=== PATIENT | male | born 1960 | race Caucasian/White ===

== ENCOUNTER 2016-06-10 03:36 | Emergency (ER) | payer MEDICAID ==
[2016-06-10] MEDS ORDERED: IPRATROPIUM/ALBUTEROL 3 ML NEB INH STA (04:47)
[2016-06-10] MEDS ORDERED: DEXAMETHASONE 10 MG/ML VIAL PO STA (04:47)
[2016-06-10] MEDS ORDERED: DEXAMETHASONE 10 MG/ML VIAL ONE (04:59)
[2016-06-10] MEDS ORDERED: IPRATROPIUM/ALBUTEROL 3 ML NEB INH ONE (05:01)
[2016-06-10] MEDS ORDERED: BENZONATATE 100 MG CAPSULE PO STA (05:36)
[2016-06-10] MEDS ORDERED: CEPHALEXIN 250 MG CAPSULE PO STA (05:36)
[2016-06-10] MEDS ORDERED: BENZONATATE 100 MG CAPSULE PO ONE (05:54)
[2016-06-10] MEDS ORDERED: CEPHALEXIN 250 MG CAPSULE PO ONE (05:54)
== END 2016-06-10 06:01 | disposition home or self-care (01) ==
DX: J18.0 Bronchopneumonia, unspecified organism (principal); I10 Essential (primary) hypertension; F17.200 Nicotine dependence, unspecified, uncomplicated
CPT/HCPCS: 36415; 71020; 80053; 83690; 83880; 85025; 94640; 99283; 99284; A9270; J7620

== ENCOUNTER 2016-07-23 12:41 | Outpatient (CLI) | payer MEDICAID | END 2016-07-23 12:42 | disposition home or self-care (01) | DX: J84.9 Interstitial pulmonary disease, unspecified (principal); R91.8 Other nonspecific abnormal finding of lung field ==

== ENCOUNTER 2016-08-25 13:46 | Outpatient (CLI) | payer MEDICAID | END 2016-08-25 13:47 | disposition home or self-care (01) | DX: R06.00 Dyspnea, unspecified (principal); R01.1 Cardiac murmur, unspecified; R07.9 Chest pain, unspecified; F17.200 Nicotine dependence, unspecified, uncomplicated ==

== ENCOUNTER 2017-02-06 10:00 | Outpatient (CLI) | payer MEDICAID | END 2017-02-06 10:01 | disposition home or self-care (01) | LOC: RT.S 10:00 | PROVIDERS: ATTEND Nurse Practitioner Family | DX: R06.02 Shortness of breath (principal); R07.89 Other chest pain | CPT/HCPCS: 93005 ==

== ENCOUNTER 2017-02-08 00:29 | Emergency (ER) | payer MEDICAID ==
--- NOTE | 2017-02-08 02:35 | ED Physician Documentation ---
PD HPI ABD PAIN - Stated complaint Stated Complaint: ABDOMINAL PAIN - Chief complaint Chief Complaint: Wound - History obtained from History obtained from: Patient - History of Present Illness Timing - onset: How many weeks ago (2) Timing - duration: Weeks Timing - details: Gradual onset Quality: Pain Location: Periumbilical Improved by: Laying still Worsened by: Palpation Associated symptoms: No: Fever Recently seen: Clinic - Additional information Additional information: patient complains of two weeks of painful swelling, redness, adjacent to umbilicus. He was evaluated by his primary care physician recently, and was started on Keflex, and scheduled for an ultrasound for tomorrow. He presents at this time due to sudden, large amount of purulent discharge. Review of Systems Constitutional: reports: Reviewed and negative GI: denies: Abdominal Pain (abdominal wall pain, but no abdominal pain per se), Vomiting Skin: reports: Rash, Lesions PD PAST MEDICAL HISTORY - Past Medical History Cardiovascular: Hypertension, Murmur Respiratory: None, COPD Neuro: None Endocrine/Autoimmune: None GI: None : None HEENT: None Psych: None Musculoskeletal: Osteoarthritis Derm: Other - Past Surgical History Past Surgical History: Yes HEENT: Tonsil/Adenoidectomy - Present Medications Home Medications: Ambulatory Orders Medication Instructions Recorded Confirmed Naproxen [Aleve] 250 mg PO DAILY 06/28/13 06/28/13 Aspirin [Elias] 325 mg PO 0800 08/31/13 08/31/13 Doxepin [SINEquan] 25 mg PO QPM #30 capsule 08/31/13 Methylprednisolone [Medrol] 4 mg PO DAILY #1 tab.ds.pk 08/31/13 Albuterol Sulfate [Proair Hfa 2 puffs IH QID #1 hfa.aer.ad 06/10/16 Inhaler] Cephalexin [Keflex] 500 mg PO TID #21 capsule 06/10/16 Dexamethasone [Decadron] 4 mg PO DAILY #5 tablet 06/10/16 guaiFENesin/CODEINE [Robitussin AC] 10 ml PO Q6H PRN #240 ml 06/10/16 Sulfamethoxazole/Trimethoprim 1 each PO BID #19 tablet 02/08/17 [Bactrim 400-80 mg Tablet] - Allergies Allergies/Adverse Reactions: Allergies Allergy/AdvReac Type Severity Reaction Status Date / Time diphenhydramine HCl * Allergy joint pain Verified 06/10/16 03:45 [From Benadryl] - Social History Does the pt smoke?: Yes Smoking Status: Current every day smoker Does the pt drink ETOH?: No Does the pt have substance abuse?: No - Immunizations Immunizations are current?: No Immunizations: No immun - POLST Patient has POLST: No PD ED PE NORMAL - Vitals Vital signs reviewed: Yes - General General: No acute distress, Well developed/nourished - Abdomen Abdomen: Soft, Non distended, Other (abdominal wall tenderness at site of lesion ) PD ED PE EXPANDED - Derm SKin visual: 1 - rash, abscess, swelling, tenderness Results - Vitals Vitals: Oxygen O2 Source Room air - Labs Labs: Microbiology 02/07/17 00:39 Wound Culture - Preliminary Abscess PD MEDICAL DECISION MAKING - ED course Complexity details: considered differential, d/w patient ED course: with pressure, an extensive amount of purulent drainage was expressed from the periumbilical skin abscess. The site of drainage was noted to be the superior or cranial aspects of the umbilicus Departure - Departure Disposition: 01 Home, Self Care Clinical Impression: Abscess Condition: Good Instructions: ED Staph Infec Abx Tx Only Follow-Up: Leena Prasad ARNP [Primary Care Provider] - (2-3 days for recheck of the infection) Prescriptions: Sulfamethoxazole/Trimethoprim [Bactrim 400-80 mg Tablet] 1 each PO BID #19 tablet Comments: Continue your current antibiotic (cephalexin), and start taking the bactrim ( sulfamethoxazole/trimethoprim) Discharge Date/Time: 02/08/17 03:35
[2017-02-08] MEDS ORDERED: SULFAMETH/TRIMETH DS 800/160 MG TABLET PO STA (03:04)
[2017-02-08] MEDS ORDERED: SULFAMETH/TRIMETH DS 800/160 MG TABLET PO ONE (03:14)
[2017-02-08 03:16] VITALS: BP 161/89
== END 2017-02-08 03:35 | disposition home or self-care (01) ==
LOC: ED 00:29
DX: L02.211 Cutaneous abscess of abdominal wall (principal); L03.311 Cellulitis of abdominal wall; I10 Essential (primary) hypertension; J44.9 Chronic obstructive pulmonary disease, unspecified; M19.90 Unspecified osteoarthritis, unspecified site; Z79.82 Long term (current) use of aspirin; F17.200 Nicotine dependence, unspecified, uncomplicated
CPT/HCPCS: 76705; 87070; 87205; 99283; A9270

== ENCOUNTER 2017-02-08 18:42 | Outpatient (CLI) | payer MEDICAID ==
--- NOTE | 2017-02-09 09:43 | Ultrasound Report ---
ULTRASOUND ANTERIOR ABDOMINAL WALL: 02/08/2017 CLINICAL INDICATION: Cellulitis. TECHNIQUE: Real-time scanning was performed with [employer] sales representative static images obtained. FINDINGS: According to the patient, this region was drained in the emergency department earlier the same day. Ultrasound of the region of redness demonstrates a heterogeneous fluid collection, measuring 3.9 x 3. 4 x 2.1 cm, compatible with residual abscess. There is no evidence of an umbilical hernia at this ti me. IMPRESSION: RESIDUAL ABSCESS, MEASURING 3.9 X 3.4 X 2.1 CM IN THE REGION OF REDNESS JUST SUPERIOR TO THE UMBILICUS. JOB #: [id number] EXT JOB #:[id number]
== END 2017-02-08 18:43 | disposition home or self-care (01) ==
LOC: DI 18:42
PROVIDERS: ATTEND Nurse Practitioner Family
DX: L03.311 Cellulitis of abdominal wall (principal)
CPT/HCPCS: 76705

== ENCOUNTER 2018-03-26 11:15 | Outpatient (CLI) | payer MEDICAID | END 2018-03-26 11:16 | disposition home or self-care (01) | LOC: LAB.R 11:15 | PROVIDERS: ATTEND Orthopaedic Surgery | DX: L03.115 Cellulitis of right lower limb (principal); L03.119 Cellulitis of unspecified part of limb; L02.31 Cutaneous abscess of buttock | CPT/HCPCS: 87070; 87205 ==

== ENCOUNTER 2018-03-26 11:17 | Outpatient (CLI) | payer MEDICAID ==
[2018-03-26 11:31] LABS: BASOPHILS # (AUTO) 0.1 10^3/uL (0.0-0.1); EOSINOPHILS # (AUTO) 0.2 10^3/uL (0.0-0.7); EOSINOPHILS % (AUTO) 1.9 %; HGB - HEMOGLOBIN 16.8 g/dL (14.0-18.0); LYMPHOCYTES # (AUTO) 2.5 10^3/uL (1.5-3.5); MEAN CORPUSCULAR HEMOGLOBIN 33.2 pg (27.0-31.0); MEAN CORPUSCULAR HGB CONC 34.6 g/dL (32.0-36.0); MEAN CORPUSCULAR VOLUME 95.8 fL (80.0-94.0); MEAN PLATELET VOLUME 8.8 fL (7.4-11.4); MONOCYTES % (AUTO) 8.4 %; NEUTROPHILS % (AUTO) 67.7 %; PLT - PLATELET COUNT 247 10^3/uL (130-450); RED BLOOD COUNT 5.06 10^6/uL (4.70-6.10); RED CELL DISTRIBUTION WIDTH 13.2 % (12.0-15.0); WHITE BLOOD COUNT 11.8 x10^3/uL (4.8-10.8)
== END 2018-03-26 11:18 | disposition home or self-care (01) ==
LOC: LAB 11:17
PROVIDERS: ATTEND Orthopaedic Surgery
DX: L03.115 Cellulitis of right lower limb (principal); L03.319 Cellulitis of trunk, unspecified; L02.31 Cutaneous abscess of buttock
CPT/HCPCS: 36415; 85025; 85651; 86140; 87070; 87205

== ENCOUNTER 2018-04-17 13:18 | Outpatient (CLI) | payer MEDICAID ==
[2018-04-17] MEDS ORDERED: GADOBUTROL 10 MMOL/10 ML VIAL ONE (15:23)
[2018-04-17] MEDS ORDERED: GADOBUTROL 10 MMOL/10 ML VIAL IVP ONE (16:30)
[2018-04-17] MEDS ORDERED: ALBUTEROL NEB 2.5 MG/3 ML INH PRN (19:04)
--- NOTE | 2018-04-18 15:41 | MRI Report ---
Reason: ABSCESS,ARTHRITIS OF RIGHT HIP Procedure Date: 04/17/2018 Accession Number: [id number] / [id number] Procedure: MRI - Hip RT W/WO CPT Code: FULL RESULT: EXAM: RIGHT HIP MRI WITHOUT AND WITH CONTRAST EXAM DATE: 04/17/2018 04:28 PM. CLINICAL HISTORY: Abscess, arthritis of right hip. COMPARISON: None. TECHNIQUE: Multiplanar, multisequence T1-weighted and fluid-sensitive, small mklbn-jc-xpae sequences of the hip and large awgca-dr-gaau sequences of the pelvis before and after administration of intravenous contrast. IV contrast: 10 cc Gadavist. Other: None. FINDINGS: Bones: Multiple subcortical cysts, marginal osteophytes, cortical irregularity and sclerosis, subchondral marrow edema at the right acetabulum and right femoral head. Peripheral enhancement of the subcortical cysts. No acute fracture or bone lesions. No definite evidence of osteomyelitis. Right Hip: No acetabular retroversion. Femoral head/neck offset is within normal limits. Small right hip joint effusion. There is a 1.1 x 1.1 x 0.6 cm ossified loose body at the inferior medial aspect of the right hip joint. Severe grade 4 chondromalacia at the right acetabulum and right femoral head. The labrum is degenerated. The ligamentum teres is intact. Other Joints: Degenerative disk changes at the visualized lower lumbar spine. Mild to moderate left and mild right sacroiliac joint osteoarthritis. The pubic symphysis is unremarkable. Mild to moderate left hip osteoarthritis. Marginal osteophytes and subcortical cysts at the left femoral head. Musculature: Mild edema within the superomedial aspect of the right gluteus medius muscle and the anterior aspect of the right gluteus minimus muscle. The gluteus medius and minimus tendons are normal. The visualized hamstring tendons are normal. The ischiofemoral space is normal. Pelvic Cavity: The visualized viscera are unremarkable. No lymphadenopathy. No free fluid in the pelvis. Other: The visualized sciatic nerves are unremarkable. No bursitis. The subcutaneous tissues are unremarkable. No abscess or cellulitis. IMPRESSION: 1. Severe right hip osteoarthritis. No definite MR evidence of osteomyelitis. 2. Small right hip joint effusion. Loose body within the inferior medial aspect of the right hip joint. Degenerated right acetabular labrum. 3. Degenerative disk changes at the visualized lower lumbar spine. 4. Mild to moderate left hip osteoarthritis. 5. Mild to moderate left and mild right sacroiliac joint osteoarthritis. 6. Mild amount of edema within the superomedial aspect of the right gluteus medius muscle and anterior aspect of the right gluteus minimus muscle which may represent strain or inflammation. [facility] MUSCULOSKELETAL RADIOLOGY SECTION
== END 2018-04-17 13:19 | disposition home or self-care (01) ==
LOC: RT 13:18
PROVIDERS: ATTEND Internal Medicine
DX: J44.9 Chronic obstructive pulmonary disease, unspecified (principal); M16.11 Unilateral primary osteoarthritis, right hip; L02.91 Cutaneous abscess, unspecified
CPT/HCPCS: 73723; 94060; 94729; A9585

== ENCOUNTER 2018-10-10 10:02 | Outpatient (CLI) | payer MEDICAID ==
[2018-10-10 17:49] LABS: BASOPHILS # (AUTO) 0.1 10^3/uL (0.0-0.1); EOSINOPHILS % (AUTO) 0.3 %; HGB - HEMOGLOBIN 16.8 g/dL (14.0-18.0); LYMPHOCYTES % (AUTO) 9.8 %; MEAN CORPUSCULAR HEMOGLOBIN 32.3 pg (27.0-31.0); MEAN CORPUSCULAR HGB CONC 33.3 g/dL (32.0-36.0); MEAN CORPUSCULAR VOLUME 97.1 fL (80.0-94.0); MEAN PLATELET VOLUME 9.8 fL (7.4-11.4); MONOCYTES # (AUTO) 0.2 10^3/uL (0.0-1.0); MONOCYTES % (AUTO) 2.2 %; NEUTROPHILS # (AUTO) 8.8 10^3/uL (1.5-6.6); NEUTROPHILS % (AUTO) 86.7 %; PLT - PLATELET COUNT 226 10^3/uL (130-450); RED CELL DISTRIBUTION WIDTH 13.5 % (12.0-15.0); WHITE BLOOD COUNT 10.1 x10^3/uL (4.8-10.8)
[2018-10-10 18:15] LABS: HB2 TOTAL 18.8 g/dL; HEMOGLOBIN A1C 0.7 g/dL; HEMOGLOBIN A1C % 5.6 % (4.6-6.2)
[2018-10-10 18:24] LABS: ALBUMIN 4.4 g/dL (3.2-5.5); ALBUMIN/GLOBULIN RATIO 1.6 (1.0-2.2); ALKALINE PHOSPHATASE 106 IU/L (42-121); ALT ALANINE AMINOTRANSFERASE 20 IU/L (10-60); AST ASPARTATE AMINOTRANSFERASE 19 IU/L (10-42); BILIRUBIN,TOTAL 0.8 mg/dL (0.2-1.0); BUN - BLOOD UREA NITROGEN 25 mg/dL (6-20); CALCIUM 9.5 mg/dL (8.5-10.3); CARBON DIOXIDE - CO2 27 mmol/L (21-32); CHLORIDE 104 mmol/L (101-111); CHOL/HDL RATIO 5.6 (<5.0); CHOLESTEROL 229 mg/dL; GFR - MDRD 76 (>89); GLUCOSE 122 mg/dL (70-100); HDL CHOLESTEROL 41 mg/dL; LDL CHOLESTEROL,CALCULATED 172 mg/dL; LDL/HDL RATIO 4.2 (<3.6); SODIUM 138 mmol/L (135-145); TOTAL PROTEIN 7.2 g/dL (6.7-8.2); VLDL CHOLESTEROL 16 mg/dL
== END 2018-10-10 10:03 | disposition home or self-care (01) ==
LOC: LAB.F 10:02
PROVIDERS: ATTEND Nurse Practitioner Family
DX: I10 Essential (primary) hypertension (principal); Z13.220 Encounter for screening for lipoid disorders; Z13.1 Encounter for screening for diabetes mellitus; N40.1 Benign prostatic hyperplasia with lower urinary tract symptoms; Z12.11 Encounter for screening for malignant neoplasm of colon
CPT/HCPCS: 36415; 80053; 80061; 82274; 83036; 83721; 84153; 84443; 85025

== ENCOUNTER 2018-10-12 13:46 | Outpatient (CLI) | payer MEDICAID ==
[2018-10-12 17:49] LABS: ALBUMIN 4.3 g/dL (3.2-5.5); ALBUMIN/GLOBULIN RATIO 1.4 (1.0-2.2); BILIRUBIN,TOTAL 0.9 mg/dL (0.2-1.0); CALCIUM 9.7 mg/dL (8.5-10.3); CREATININE 1.1 mg/dL (0.6-1.2); TOTAL PROTEIN 7.3 g/dL (6.7-8.2)
== END 2018-10-12 13:47 | disposition home or self-care (01) ==
LOC: LAB.F 13:46
PROVIDERS: ATTEND Physician Assistant Medical
DX: I10 Essential (primary) hypertension (principal); D75.89 Other specified diseases of blood and blood-forming organs
CPT/HCPCS: 36415; 80053; 82607; 82746; 82747

== ENCOUNTER 2018-10-16 08:00 | Outpatient (CLI) | payer MEDICAID | END 2018-10-16 23:59 | disposition home or self-care (01) | LOC: LAB.R 08:00 | PROVIDERS: ATTEND Nurse Practitioner | DX: Z12.11 Encounter for screening for malignant neoplasm of colon (principal) | CPT/HCPCS: 82270 ==

== ENCOUNTER 2019-07-18 09:09 | Outpatient (CLI) | payer MEDICAID ==
[2019-07-18 17:58] LABS: ALBUMIN 4.3 g/dL (3.2-5.5); ALBUMIN/GLOBULIN RATIO 1.7 (1.0-2.2); ALKALINE PHOSPHATASE 76 IU/L (42-121); ALT ALANINE AMINOTRANSFERASE 20 IU/L (10-60); AST ASPARTATE AMINOTRANSFERASE 16 IU/L (10-42); BUN - BLOOD UREA NITROGEN 46 mg/dL (6-20); CALCIUM 9.3 mg/dL (8.5-10.3); CARBON DIOXIDE - CO2 28 mmol/L (21-32); CHLORIDE 101 mmol/L (101-111); CHOL/HDL RATIO 3.8 (<5.0); CHOLESTEROL 150 mg/dL; CREATININE 1.7 mg/dL (0.6-1.2); GFR - MDRD 41 (>89); GLUCOSE 125 mg/dL (70-100); HDL CHOLESTEROL 40 mg/dL; LDL CHOLESTEROL,CALCULATED 93 mg/dL; LDL/HDL RATIO 2.3 (<3.6); SODIUM 135 mmol/L (135-145); TOTAL PROTEIN 6.9 g/dL (6.7-8.2); VLDL CHOLESTEROL 17 mg/dL
== END 2019-07-18 09:10 | disposition home or self-care (01) ==
LOC: LAB.S 09:09
PROVIDERS: ATTEND Internal Medicine Cardiovascular Disease
DX: E78.5 Hyperlipidemia, unspecified (principal)
CPT/HCPCS: 36415; 80053; 80061; 83721

== ENCOUNTER 2019-10-01 10:35 | Outpatient (CLI) | payer MEDICAID ==
[2019-10-01 11:16] LABS: CALCIUM 9.5 mg/dL (8.5-10.3); CREATININE 1.3 mg/dL (0.6-1.2)
== END 2019-10-01 10:36 | disposition home or self-care (01) ==
LOC: LAB 10:35
PROVIDERS: ATTEND Nurse Practitioner
DX: I10 Essential (primary) hypertension (principal); I73.9 Peripheral vascular disease, unspecified; F17.200 Nicotine dependence, unspecified, uncomplicated; R06.02 Shortness of breath
CPT/HCPCS: 36415; 80048

== ENCOUNTER 2019-11-13 09:47 | Outpatient (CLI) | payer MEDICAID ==
[2019-11-13 10:56] LABS: BUN - BLOOD UREA NITROGEN 41 mg/dL (6-20); CARBON DIOXIDE - CO2 26 mmol/L (21-32); CHLORIDE 103 mmol/L (101-111); CHOL/HDL RATIO 3.1 (<5.0); CHOLESTEROL 130 mg/dL; CREATININE 1.2 mg/dL (0.6-1.2); GLUCOSE 109 mg/dL (70-100); HDL CHOLESTEROL 42 mg/dL; LDL CHOLESTEROL,CALCULATED 79 mg/dL; LDL/HDL RATIO 1.9 (<3.6); SODIUM 136 mmol/L (135-145); VLDL CHOLESTEROL 9 mg/dL
== END 2019-11-13 09:48 | disposition home or self-care (01) ==
LOC: LAB 09:47
PROVIDERS: ATTEND Nurse Practitioner
DX: I10 Essential (primary) hypertension (principal); E87.5 Hyperkalemia; E78.5 Hyperlipidemia, unspecified
CPT/HCPCS: 36415; 80048; 80061; 83721

== ENCOUNTER 2020-07-09 11:08 | Outpatient (CLI) | payer MEDICAID ==
[2020-07-09 14:49] LABS: BASOPHILS # (AUTO) 0.1 10^3/uL (0.0-0.1); BASOPHILS % (AUTO) 1.4 %; EOSINOPHILS # (AUTO) 0.2 10^3/uL (0.0-0.7); EOSINOPHILS % (AUTO) 3.1 %; HGB - HEMOGLOBIN 14.9 g/dL (14.0-18.0); LYMPHOCYTES % (AUTO) 25.3 %; MEAN CORPUSCULAR HEMOGLOBIN 33.7 pg (27.0-31.0); MEAN CORPUSCULAR VOLUME 105.2 fL (80.0-94.0); MEAN PLATELET VOLUME 10.7 fL (7.4-11.4); MONOCYTES # (AUTO) 0.8 10^3/uL (0.0-1.0); MONOCYTES % (AUTO) 9.7 %; NEUTROPHILS # (AUTO) 4.7 10^3/uL (1.5-6.6); NEUTROPHILS % (AUTO) 60.2 %; PLT - PLATELET COUNT 295 10^3/uL (130-450); RED BLOOD COUNT 4.42 10^6/uL (4.70-6.10); RED CELL DISTRIBUTION WIDTH 12.4 % (12.0-15.0); WHITE BLOOD COUNT 7.7 x10^3/uL (4.8-10.8)
[2020-07-09 15:16] LABS: ALBUMIN 4.2 g/dL (3.2-5.5); ALBUMIN/GLOBULIN RATIO 1.5 (1.0-2.2); ALKALINE PHOSPHATASE 67 IU/L (42-121); ALT ALANINE AMINOTRANSFERASE 30 IU/L (10-60); AST ASPARTATE AMINOTRANSFERASE 21 IU/L (10-42); BILIRUBIN,TOTAL 0.8 mg/dL (0.2-1.0); BUN - BLOOD UREA NITROGEN 36 mg/dL (6-20); CALCIUM 9.4 mg/dL (8.5-10.3); CARBON DIOXIDE - CO2 24 mmol/L (21-32); CHLORIDE 102 mmol/L (101-111); CHOL/HDL RATIO 2.5 (<5.0); CHOLESTEROL 108 mg/dL; CREATININE 1.4 mg/dL (0.6-1.2); GLUCOSE 111 mg/dL (70-100); HDL CHOLESTEROL 44 mg/dL; LDL CHOLESTEROL,CALCULATED 50 mg/dL; LDL/HDL RATIO 1.1 (<3.6); VLDL CHOLESTEROL 14 mg/dL
== END 2020-07-09 11:09 | disposition home or self-care (01) ==
LOC: LAB.S 11:08
PROVIDERS: ATTEND Registered Nurse
DX: I12.9 Hypertensive chronic kidney disease with stage 1 through stage 4 chronic kidney disease, or unspecified chronic kidney disease (principal); N18.30 Chronic kidney disease, stage 3 unspecified; R07.89 Other chest pain; R01.1 Cardiac murmur, unspecified; E87.5 Hyperkalemia; M25.551 Pain in right hip; M79.604 Pain in right leg; F31.9 Bipolar disorder, unspecified; J44.9 Chronic obstructive pulmonary disease, unspecified
CPT/HCPCS: 36415; 80053; 80061; 83721; 84153; 84443; 85025

== ENCOUNTER 2021-05-04 09:26 | Outpatient (CLI) | payer MEDICAID ==
[2021-05-04 12:49] LABS: FECAL OCCULT BLOOD (FIT) NEGATIVE (NEGATIVE)
== END 2021-05-04 09:27 | disposition home or self-care (01) ==
LOC: LAB 09:26
PROVIDERS: ATTEND Registered Nurse
DX: Z12.11 Encounter for screening for malignant neoplasm of colon (principal)
CPT/HCPCS: 82274

== ENCOUNTER 2021-05-06 09:41 | Outpatient (CLI) | payer MEDICAID ==
--- NOTE | 2021-05-06 09:57 | CT Report ---
PROCEDURE: CHEST WO INDICATIONS: PULMONARY NODULE TECHNIQUE: Noncontrast 1mm axial images were acquired from the pulmonary apices to the posterior costophrenic an gles. Axial 5 mm soft tissue kernel reconstructions were performed as well as 8 mm axial MIP and cor onal and sagittal 5 mm reformations. For radiation dose reduction, the following was used: automate d exposure control, adjustment of mA and/or kV according to patient size. COMPARISON: CT chest 07/23/2016. FINDINGS: Image quality: Excellent. Lungs and pleura: Several small pulmonary nodules which are unchanged compared to 2017. For example: -Right upper lobe 0.4 cm, (4/102), unchanged. -Right lower lobe subpleural 0.5 cm, (4/201), unchanged. -Left lower lobe 0.6 cm, (4/201), unchanged. -Left lower lobe subpleural 0.5 cm, (4/248), unchanged. Mild emphysematous change. No acute air space opacities. No pleural effusions or pneumothorax. Centr al airways are clear. Mediastinum: Left pacemaker with right atrial and right ventricular leads. Heart size is within norm al limits. Coronary artery calcifications. No pericardial effusion. No mediastinal adenopathy by si ze criteria. Thoracic aorta and central pulmonary arteries are normal in size. Esophagus is normal in caliber. Small hiatal hernia. Bones and chest wall: No suspicious bony lesions. No vertebral body compression fractures. No axil ravi or supraclavicular adenopathy by size criteria. The thyroid is normal in size and there are no incidental findings. Abdomen: Visualized upper abdominal solid organs and bowel loops appear normal in the absence of con trast. IMPRESSION: 1. Several small pulmonary nodules which are unchanged compared to 2017 suggesting a benign etiology. Largest in the left lower lobe measuring 0.6 cm. 2. Coronary artery calcifications. Reviewed by: Charles Crooks MD on 05/06/2021 9:56 AM [facility] Approved by: Charles Crooks MD on 05/06/2021 9:56 AM [facility] Station ID: [id number]
== END 2021-05-06 09:42 | disposition home or self-care (01) ==
LOC: DI 09:41
PROVIDERS: ATTEND Registered Nurse
DX: R91.8 Other nonspecific abnormal finding of lung field (principal); F17.200 Nicotine dependence, unspecified, uncomplicated; I25.10 Atherosclerotic heart disease of native coronary artery without angina pectoris

== ENCOUNTER 2021-07-30 10:49 | Outpatient (CLI) | payer MEDICAID ==
[2021-07-30] MEDS ORDERED: ALBUTEROL 1 PUFF INH STA (12:50)
== END 2021-07-30 10:50 | disposition home or self-care (01) ==
LOC: RT 10:49
PROVIDERS: ATTEND Internal Medicine Sleep Medicine
DX: R06.02 Shortness of breath (principal); F17.210 Nicotine dependence, cigarettes, uncomplicated; I10 Essential (primary) hypertension; N40.1 Benign prostatic hyperplasia with lower urinary tract symptoms; Z79.899 Other long term (current) drug therapy; Z12.5 Encounter for screening for malignant neoplasm of prostate; Z13.220 Encounter for screening for lipoid disorders
CPT/HCPCS: 36415; 80053; 80061; 83721; 84153; 84443; 85025; 94060; 94727; 94729

== ENCOUNTER 2021-07-30 13:54 | Outpatient (CLI) | payer MEDICAID ==
[2021-07-30 20:39] LABS: BASOPHILS # (AUTO) 0.1 10^3/uL (0.0-0.1); BASOPHILS % (AUTO) 0.9 %; EOSINOPHILS # (AUTO) 0.3 10^3/uL (0.0-0.7); EOSINOPHILS % (AUTO) 3.4 %; HCT - HEMATOCRIT 49.3 % (42.0-52.0); HGB - HEMOGLOBIN 16.4 g/dL (14.0-18.0); LYMPHOCYTES # (AUTO) 2.6 10^3/uL (1.5-3.5); MEAN CORPUSCULAR HEMOGLOBIN 34.1 pg (27.0-31.0); MEAN CORPUSCULAR HGB CONC 33.3 g/dL (32.0-36.0); MEAN CORPUSCULAR VOLUME 102.5 fL (80.0-94.0); MEAN PLATELET VOLUME 11.1 fL (7.4-11.4); MONOCYTES # (AUTO) 0.8 10^3/uL (0.0-1.0); MONOCYTES % (AUTO) 9.6 %; NEUTROPHILS # (AUTO) 4.7 10^3/uL (1.5-6.6); NEUTROPHILS % (AUTO) 54.9 %; PLT - PLATELET COUNT 249 10^3/uL (130-450); RED BLOOD COUNT 4.81 10^6/uL (4.70-6.10); RED CELL DISTRIBUTION WIDTH 12.5 % (12.0-15.0); WHITE BLOOD COUNT 8.5 x10^3/uL (4.8-10.8)
[2021-07-30 21:03] LABS: ALBUMIN 4.7 g/dL (3.2-5.5); ALKALINE PHOSPHATASE 72 IU/L (42-121); ALT ALANINE AMINOTRANSFERASE 21 IU/L (10-60); AST ASPARTATE AMINOTRANSFERASE 20 IU/L (10-42); BILIRUBIN,TOTAL 0.8 mg/dL (0.2-1.0); BUN - BLOOD UREA NITROGEN 34 mg/dL (6-20); CALCIUM 9.7 mg/dL (8.5-10.3); CARBON DIOXIDE - CO2 26 mmol/L (21-32); CHLORIDE 103 mmol/L (101-111); CHOL/HDL RATIO 2.7 (<5.0); CHOLESTEROL 136 mg/dL; CREATININE 1.4 mg/dL (0.6-1.2); GFR - MDRD 51 (>89); GLUCOSE 90 mg/dL (70-100); HDL CHOLESTEROL 51 mg/dL; LDL CHOLESTEROL,CALCULATED 67 mg/dL; LDL/HDL RATIO 1.3 (<3.6); POTASSIUM 4.8 mmol/L (3.5-5.0); SODIUM 137 mmol/L (135-145); TRIGLYCERIDES 92 mg/dL; VLDL CHOLESTEROL 18 mg/dL
== END 2021-07-30 13:55 | disposition home or self-care (01) ==
LOC: LAB.S 13:54
PROVIDERS: ATTEND Registered Nurse
DX: I10 Essential (primary) hypertension (principal); N40.1 Benign prostatic hyperplasia with lower urinary tract symptoms; Z79.899 Other long term (current) drug therapy; Z12.5 Encounter for screening for malignant neoplasm of prostate; Z13.220 Encounter for screening for lipoid disorders
CPT/HCPCS: 36415; 80053; 80061; 83721; 84153; 84443; 85025

== ENCOUNTER 2021-10-07 14:03 | Outpatient (CLI) | payer MEDICAID ==
[2021-10-07 20:04] LABS: CALCIUM 9.3 mg/dL (8.5-10.3); CREATININE 1.5 mg/dL (0.6-1.2); POTASSIUM 4.7 mmol/L (3.5-5.0)
== END 2021-10-07 14:04 | disposition home or self-care (01) ==
LOC: LAB.S 14:03
PROVIDERS: ATTEND Internal Medicine Cardiovascular Disease
DX: E87.5 Hyperkalemia (principal)
CPT/HCPCS: 36415; 80048

== ENCOUNTER 2022-10-17 10:53 | Outpatient (CLI) | payer MEDICAID ==
[2022-10-17 16:37] LABS: ALBUMIN 4.1 g/dL (3.2-5.5); ALBUMIN/GLOBULIN RATIO 1.4 (1.0-2.2); ALKALINE PHOSPHATASE 78 IU/L (42-121); ALT ALANINE AMINOTRANSFERASE 17 IU/L (10-60); AST ASPARTATE AMINOTRANSFERASE 16 IU/L (10-42); BILIRUBIN,TOTAL 0.9 mg/dL (0.2-1.0); BUN - BLOOD UREA NITROGEN 32 mg/dL (6-20); CALCIUM 9.4 mg/dL (8.5-10.3); CARBON DIOXIDE - CO2 30 mmol/L (21-32); CHLORIDE 104 mmol/L (101-111); CHOL/HDL RATIO 2.5 (<5.0); CHOLESTEROL 133 mg/dL; CREATININE 1.4 mg/dL (0.6-1.2); GFR - MDRD 51 (>89); GLUCOSE 103 mg/dL (70-100); HDL CHOLESTEROL 53 mg/dL; LDL CHOLESTEROL,CALCULATED 67 mg/dL; LDL/HDL RATIO 1.3 (<3.6); POTASSIUM 5.3 mmol/L (3.5-5.0); SODIUM 139 mmol/L (135-145); TOTAL PROTEIN 7.1 g/dL (6.7-8.2); TRIGLYCERIDES 63 mg/dL; VLDL CHOLESTEROL 13 mg/dL
== END 2022-10-17 10:54 | disposition home or self-care (01) ==
LOC: LAB.S 10:53
PROVIDERS: ATTEND Internal Medicine Cardiovascular Disease
DX: E78.5 Hyperlipidemia, unspecified (principal); I42.1 Obstructive hypertrophic cardiomyopathy
CPT/HCPCS: 36415; 80053; 80061; 83721

== ENCOUNTER 2022-11-04 11:12 | Outpatient (CLI) | payer MEDICAID ==
[2022-11-04 14:53] LABS: CALCIUM 9.4 mg/dL (8.5-10.3); CREATININE 1.7 mg/dL (0.6-1.2); POTASSIUM 5.2 mmol/L (3.5-5.0)
== END 2022-11-04 11:13 | disposition home or self-care (01) ==
LOC: LAB.S 11:12
PROVIDERS: ATTEND Internal Medicine Cardiovascular Disease
DX: I42.1 Obstructive hypertrophic cardiomyopathy (principal)
CPT/HCPCS: 36415; 80048

== ENCOUNTER 2022-11-18 11:09 | Outpatient (CLI) | payer MEDICAID ==
[2022-11-18 16:03] LABS: CALCIUM 9.3 mg/dL (8.5-10.3); CREATININE 1.6 mg/dL (0.6-1.2); POTASSIUM 4.9 mmol/L (3.5-5.0)
== END 2022-11-18 11:10 | disposition home or self-care (01) ==
LOC: LAB.S 11:09
PROVIDERS: ATTEND Internal Medicine Cardiovascular Disease
DX: I42.1 Obstructive hypertrophic cardiomyopathy (principal)
CPT/HCPCS: 36415; 80048